=== PATIENT | male | born 1955 | race Caucasian/White ===

== ENCOUNTER 2020-08-08 15:33 | Inpatient (IN) | payer MEDICARE, OTHER, SELFPAY ==
[2020-08-08] VITALS (27 sets, daily range): BP systolic 105–154; BP diastolic 48–98; PULSE 76–86; RESP 10–29; TEMP 36.3–36.8; O2SAT 98–99; BMI 31.9
--- NOTE | ~2020-08-08 | CT_ITS ---
EXAMINATION: CT brain wo con DATE: 08/08/2020 17:33 INDICATION: Dizziness. TECHNIQUE: Computed tomography (CT) of the head was performed without intravenous contrast. The mA wa s adjusted according to patient size. Iterative reconstruction technique was employed. The dose-lengt h product was 605.33 mGy-cm. COMPARISON: None FINDINGS: There is no intracranial hemorrhage, acute infarction, or abnormal intracranial mass lesion . The ventricles are normal in size. The orbits are normal. There is near complete opacification of l eft sphenoid sinus with thickening and sclerosis of the sinus hercules, consistent with chronic sinusiti s. The mastoid air cells are normal. IMPRESSION: 1. Normal brain. 2. Chronic sinusitis. Reviewed, dictated and finalized at location A.
--- NOTE | ~2020-08-08 | MR_ITS ---
EXAMINATION: MR brain/brain stem wo/w con DATE: 08/09/2020 16:18 INDICATION: Acute cerebrovascular accident. TECHNIQUE: Magnetic resonance imaging (MRI) of the brain and brainstem was performed without and with 20 mL MultiHance intravenous contrast. Sequences included sagittal and axial T1-weighted FSE, axial diffusion-weighted FS EPI, axial T2*-weighted GRE, axial T2-weighted FLAIR Propeller, and axial T2-we ighted Propeller. Postcontrast sequences included axial, sagittal, and coronal T1-weighted FSE. Appar ent diffusion coefficient (ADC) maps were created. COMPARISON: Head CT 08/08/2020 FINDINGS: There are scattered areas of nonspecific increased T2-weighted signal intensity in the cere bral white matter, which is within normal limits for the patient's age. There is no intracranial hemo rrhage, acute infarction, or abnormal intracranial mass lesion. The ventricles are normal in size. Th ere is mucosal thickening in left sphenoid sinus with thickening of the sinus hercules, consistent with chronic sinusitis. The orbits are normal. The mastoid air cells are normal. IMPRESSION: 1. Normal aging brain. 2. Chronic sinusitis. Reviewed, dictated and finalized at location A.
--- NOTE | ~2020-08-08 | XR_ITS ---
EXAMINATION: XR chest 1V portable DATE: 08/08/2020 17:13 INDICATION: Dizziness. TECHNIQUE: A single frontal view of the chest was obtained. COMPARISON: None. FINDINGS: The chest demonstrates clear lungs without pneumonia, pleural effusion, or pneumothorax. Th e heart size is normal. IMPRESSION: 1. No acute cardiopulmonary disease. Reviewed, dictated and finalized at location A.
--- NOTE | 2020-08-08 15:51 | ECG_ITS ---
Measurements Intervals [place] Rate: 79 P: 67 CT: 174 QRS: 0 QRSD: 110 T: 28 QT: 426 QTc: 491 Interpretive Statements SINUS RHYTHM WITH SINUS ARRHYTHMIA NONSPECIFIC ST & T-WAVE ABNORMALITY- HIGH LATERAL LEADS PROLONGED QT INTERVAL BASELINE ARTIFACT- II, III, AVR, AVF, V1-6 ABNORMAL ECG Electronically Signed On 08-08-2020 15:55:16 CDT by Pérez Pepe D.O.
[2020-08-08] MEDS: ONDANSETRON INJ 4 MG/2 ML VIAL IV PUSH (16:42)
[2020-08-08] MEDS: SODIUM CHLORIDE 0.9% IV 1,000 ML 999 ML IV CONT ×2 (16:46→17:43)
--- NOTE | 2020-08-08 16:47 | ED.DIZZY ---
HPI - Dizziness General Chief Complaint: Dizziness Stated Complaint: DIZZY,LIGHTHEADED,NAUSEA Time Seen by Provider: 08/08/20 16:02 Source: patient, EMS and RN notes reviewed Mode of arrival: EMS Limitations: no limitations History of Present Illness HPI Narrative: Patient is 64 years old white male brought to the emergency room by ambulance because of dizziness and fall. 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 Patient does not take blood thinner. History of diabetes, hypertension, brain bleed. Patient does not smoke or drink or uses drugs. Related Data Allergies Allergy/AdvReac Type Severity Reaction Status Date / Time iodine Allergy Unknown Verified 08/08/20 16:12 Review of Systems Review of Systems: Narrative: CONSTITUTIONAL: Denies fever, chills, or sweats. EYES: Denies visual changes, redness, or discharge. ENT: Denies rhinorrhea, congestion, sore throat, or otalgia. CARDIOVASCULAR: Denies chest pain, palpitations, or edema. RESPIRATORY: Denies cough or dyspnea. GASTROINTESTINAL: Denies abdominal pain, nausea, vomiting, or diarrhea. GENITOURINARY: Denies dysuria or hematuria. SKIN: Denies rash or itching. MUSCULOSKELETAL: Denies back pain, joint pain, or myalgia. NEUROLOGIC: Denies headache, numbness, or weakness. PSYCHIATRIC: Denies anxiety or depression. Exam Narrative: Exam Narrative: General appearance: Well-developed, well-nourished Skin: Normal color, warm skin slightly diaphoretic Head: Normocephalic, nontraumatic Eyes: Clear conjunctiva ENT: Oropharynx normal, ears normal, nose normal Neck: Supple, nontender Chest and respiratory: Airway patent, no respiratory distress, no accessory muscle use Heart: Regular rate/rhythm Abdomen: Soft, nontender, no organomegaly, quiet bowel sounds Vascular: Normal peripheral pulses, normal capillary refill. Musculoskeletal: Normal range of motion, nontender back Neurologic: Alert and oriented ?3, FAMILY DEVELOPMENT EXTENSION SPECIALIST is normal as tested, no gross motor deficit. Patient unable to stand up without falling backward. Course Course Emergency Course: Stable Vital Signs Vital signs: Vital Signs Pulse Rate 81 08/08/20 15:41 Respiratory Rate 10 L 08/08/20 15:41 Temperature 36.3 C L 08/08/20 16:02 Pulse Rate 79 08/08/20 16:02 Respiratory Rate 12 08/08/20 16:02 Blood Pressure 122/67 08/08/20 16:02 Pulse Oximetry 99 08/08/20 16:02 MDM - Dizziness MDM Narrative Medical decision making narrative: Heat exhaustion versus acute vertebrobasilar insufficiency. CT head, labs, IV fluid ordered. Further plan to follow Differential Diagnosis Differential diagnosis: Likely orthostatic hypotension, vertebral basilar insufficiency, cerebrovascular accident and transient cerebral ischemia Lab Data Result diagrams: 08/08/20 16:56 08/08/20 16:56 Labs: Lab Results 08/08/20 08/08/20 08/08/20 Range/Units 16:56 16:56 16:56 WBC 5.4 (4.5-10.0) K/mm3 RBC 4.71 (4.6-6.20) M/mm3 Hgb 12.7 L (14.0-18.0) g/dL Hct 38.9 L (42.0-52.0) % MCV 82.6 (80-100) fl MCH 27.0 (26-34) pg MCHC 32.6 (32-36) g/dl RDW 13.6 (11.5-14.5) % Plt Count 54 L (150-375) k/mm3 MPV 11.4 H (7.4-10.4) fl Immature Gran % (Auto) 0.2 (0-0.5) % Neut % (Auto) 84.4 H (45.5-73.1) % Lymph % (Auto) 8.2 L (18.3-44.2) % Tripp % (Auto) 6.2 (2.6-8.5) % Eos % (Auto) 0.6 (0-4.4) % Baso % (Auto) 0.4 (0.2-1.2) % Lymph # (Auto)
[2020-08-08 17:07] LABS: Basophils Percent Auto 0.4 % (0.2-1.2); Eosinophils Percent Auto 0.6 % (0-4.4); Hematocrit 38.9 % (42.0-52.0); Hemoglobin 12.7 g/dL (14.0-18.0); Immature Granulocyte Absolute 0.01 K/mm3 (0.00-0.031); Immature Granulocyte Percent A 0.2 % (0-0.5); Immature Platelet Fraction Pct 6.4 % (0.9-11.2); Lymphocytes Absolute Auto 0.44 K/mm3 (0.9-3.2); Lymphocytes Percent Auto 8.2 % (18.3-44.2); Mean Corpuscular HGB Conc 32.6 g/dl (32-36); Mean Corpuscular Volume 82.6 fl (80-100); Mean Platelet Volume 11.4 fl (7.4-10.4); Monocytes Absolute Auto 0.3 K/mm3 (0.1-0.6); Monocytes Percent Auto 6.2 % (2.6-8.5); Neutrophils Absolute Auto 4.5 K/mm3 (1.3-6.7); Neutrophils Percent Auto 84.4 % (45.5-73.1); Platelet Count Result 54 k/mm3 (150-375); Red Blood Count 4.71 M/mm3 (4.6-6.20); Red Cell Distribution Width 13.6 % (11.5-14.5); White Blood Count 5.4 K/mm3 (4.5-10.0)
[2020-08-08 17:11] LABS: Add Urine Microscopic? YES; Appearance Urine Clear (Clear); Bilirubin Urine Negative (Negative); Blood Urine Negative (Negative); Color Urine Yellow (Yellow); Glucose Urine UA 3+ mg/dL (Negative); Ketones Urine Negative (Negative); Leukocyte Esterase Ur Negative LEU/UL (Negative); Nitrate Urine Negative (Negative); Protein Urine Negative (Negative); Specific Grav Ur 1.018 (1.001-1.035); Urobilinogen Urine Negative mg/dL (<2.0); WBC Urine 0-3 /hpf
[2020-08-08 17:14] LABS: INR 1.4; Prothrombin Time 17.3 Seconds (11.1-14.7)
[2020-08-08 17:15] LABS: Partial Thromboplastin Time 28.4 SECONDS (22.3-36.8)
[2020-08-08 17:22] LABS: Alanine Aminotransferase 25 U/L (4-50); Albumin Level 4.3 g/dL (3.5-5.1); Alkaline Phosphatase 66 U/L (38-126); Anion Gap 8 mmol/L (8-16); Aspartate Amino Transferase 37 U/L (17-59); Bilirubin,Total 0.9 mg/dL (0.2-1.3); Blood Urea Nitrogen 21 mg/dL (9-20); Calcium 9.4 mg/dL (8.4-10.2); Carbon Dioxide 30 mmol/L (22-30); Chloride 99 mmol/L (98-107); Estimated CRCL calculation 77 ml/min; Estimated Glomerular Filt Rate > 60; Glucose 266 mg/dL (75-110); Potassium 3.6 mmol/L (3.4-5.0); Sodium 137 mmol/L (137-145)
[2020-08-08 17:32] LABS: Benzodiazepines Screen Urine Negative (Negative)
[2020-08-08 17:34] LABS: Amphetamine Screen Urine Negative (Negative); Cannabinoid Screen Urine Negative (Negative); Cocaine Screen Urine Negative (Negative); Methadone Screen Urine Negative (Negative); Opiate Screen Urine Positive (Negative); Phencyclidine Screen Urine Negative (Negative)
[2020-08-08 17:35] LABS: Barbiturate Screen Urine Negative (Negative)
[2020-08-08 17:46] LABS: Troponin I < 0.012 ng/mL (0.000-0.034)
--- NOTE | 2020-08-08 18:31 | PC.NURSE ---
[id number] Karla Claire - daughter
--- NOTE | 2020-08-08 21:09 | ADMGEN ---
This patient, Emily Coates, was admitted to 2 Medical Room 252-01 @ 2054. Patient/family oriented to hospital policies and general routines including ID bracelet, bed and alarms, visiting hours, pain management, procedures, bathroom and other care routines, personal items, smoking policy, room service/diet, and visiting hours. Information on how to activate the Rapid Response Team has been discussed. Patient/Family are encouraged to report perceived risks to care and to ask questions if they do not understand what they are told or what they should do.
--- NOTE | 2020-08-08 22:27 | PM.IMHP ---
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 Patient presented today to emergency room via EMS after patient was working cutting trees when he felt dizzy and next thing he knows he was on route to the hospital in the ambulance he has no recollection of the events he was working with 3 other co-workers. There were no prodromes no aura, no shortness of breath no cough no sputum production no fevers no rigors no chills no chest pain no PND no orthopnea no diarrhea he has been his usual state of health up until this is states that he was very hot outside and humid. At the time of my visit patient denied any discomfort no headache no vision change no focal weakness no sensory deficit. Preliminary workup was essentially nonrevealing. Decision was made to place patient on observation. Review of Systems Review of Systems: Narrative: Patient was brought to the emergency room but via EMS due to syncopal episode Constitutional: Constitutional: Denies chills, Denies fatigue, Denies fever(s), Denies malaise and Denies weakness Eyes: Eyes: Denies change in vision ENT: Denies nasal congestion, Denies nasal discharge and Denies nasal obstruction Cardiovascular: Cardiovascular: Denies irregular heart rhythm, Denies claudication, Reports lightheadedness, Denies radiating jaw, neck or arm pain, Denies palpitations, Denies dyspnea, Denies dyspnea on exertion and Denies paroxysmal nocturnal dyspnea Respiratory: Respiratory: Denies cough Gastrointestinal: Gastrointestinal: Denies diarrhea, Denies nausea and Denies vomiting Genitourinary: Genitourinary: Denies dysuria Musculoskeletal: Musculoskeletal: Denies arthralgias Integumentary/Breasts: Skin/Breast: Denies rash Neurologic: Denies focal weakness and Denies Sensory deficit (Neuro) Psychiatric: Psychiatric: Reports no additional psychiatric complaints Endocrine: Endocrine: Reports no additional endocrine complaints Hematologic/Lymphatic: Hematologic/Lymphatic: Reports no additional hematologic/lymphatic complaints Allergic/Immunologic: Allergic/Immunologic: Reports no additional allergic/immunologic complaints PMFSH Social History Social History Smoking status: Former smoker Alcohol intake: never Substance use: never Substance use type: does not use Gender identity (if verbalized by the patient): Male Spiritual care concerns: No Meds Home Medications and Allergies Home Medications Medication Instructions Recorded Confirmed Type Iron (ferrous sulfate) 325 mg PO DAILY 08/08/20 08/08/20 History amitriptyline 100 mg PO QPM 08/08/20 08/08/20 History colestipol 2 g PO BID 08/08/20 08/08/20 History dulaglutide [Trulicity] 1.5 mg SUBCUT WEEKLY 08/08/20 08/08/20 History insulin glargine [Lantus Solostar 18 unit SUBCUT DAILY 08/08/20 08/08/20 History U-100 Insulin] lisinopril-hydrochlorothiazide 2 tablet PO DAILY 08/08/20 08/08/20 History lovastatin 20 mg PO DAILY 08/08/20 08/08/20 History sertraline 100 mg PO BID 08/08/20 08/08/20 History Allergies Allergy/AdvReac Type Severity Reaction Status Date / Time iodine Allergy Unknown Verified 08/08/20 16:12 Vital Signs Vital Signs - 24 hr 08/08/20 15:41 08/08/20 15:46 08/08/20 15:52 Temperature Pulse Rate 81 78 82 Respiratory Rate 10 L 10 L 16 Blood Pressure 113/68 Pulse Oximetry 98 08/08/20 16:00 08/08/20 16:01 08/08/20 16:02 Temperature 97.4 F L Pulse Rate 80 81 78 Respiratory Rate 16 13 10 L Blood Pressure 122/67 122/67 Pulse Oximetry 98 99 08/08/20 16:15 08/08/20 16:16 08/08/20 16:30 Temperature Pulse Rate 82 86 83 Respiratory
[2020-08-08] MEDS: LOVASTATIN 20 MG TABLET PO (22:59)
[2020-08-08] MEDS: SERTRALINE HCL 50 MG TABLET 100 MG PO (22:59)
[2020-08-08] MEDS: AMITRIPTYLINE HCL 25 MG TABLET 100 MG PO (22:59)
[2020-08-08 23:20] LABS: Glucose Point of Care 261 mg/dl (65-105)
[2020-08-09] VITALS (8 sets, daily range): BP systolic 112–143; BP diastolic 59–88; PULSE 67–82; RESP 17–20; TEMP 36–36.7; O2SAT 94–98
--- NOTE | 2020-08-09 | ECHO_ITS ---
Patient Info Name: Emily Coates Age: 64 years : 1955 Gender: Male Ht: 74 in Wt: 249 lbs BSA: 2.46 m2 HR: 68 bpm BP: 117 / 66 mmHg Heart Rhythm: Sinus Rhythm Technical Quality: Fair Exam Date: 08/09/2020 1:03 PM Exam Location: [facility] Card Pulmonary Patient Status: Inpatient Admit Date: 08/08/2020 Staff Ordering Physician: Jeri Delarosa PA-C Financial Aid Counselor: Marley Gutierrez RDCS Attending Provider: Jeri Delarosa PA-C Referring Physician: [place] DE JESUS; Exam Type: CA echo dop bubble study w con Study Info Complete two-dimensional, color flow and Doppler transthoracic echocardiogram is performed with contrast to opacify the left ventricle and to improve the deliniation of the left ventricle endocardial borders. Complete two-dimensional, color flow and Doppler transthoracic echocardiogram is performed with agitated saline. Contrast/Agitated Saline Contrast/Ag. Saline: Agitated Saline Amount: 4.00 ml Summary 1. Left ventricular chamber dimension is normal. 2. Left ventricular systolic function is normal, estimated at 60-65%. 3. There is moderately increased left ventricular wall thickness. 4. The left ventricular diastolic function is grade II diastolic dysfunction. 5. Left atrial chamber dimension is mildly enlarged. 6. No evidence for interatrial shunt with injection of agitated saline with or without Valsalva. 7. There is trace mitral valve regurgitation. 8. There is no aortic valve stenosis. 9. There is trace tricuspid valve regurgitation. 10. No pulmonary hypertension, estimated pulmonary arterial systolic pressure is 19 mmHg. Left Ventricle Left ventricular chamber dimension is normal. Left ventricular systolic function is normal, estimated at 60-65%. There is moderately increased left ventricular wall thickness. The left ventricular diastolic function is grade II diastolic dysfunction. Right Ventricle Right ventricular chamber dimension is normal. Right ventricular systolic function is normal. Left Atria Left atrial chamber dimension is mildly enlarged. Right Atria Right atrial chamber dimension is mildly enlarged. Atrial Septum No evidence for interatrial shunt with injection of agitated saline with or without Valsalva. Aortic Valve The aortic valve is trileaflet. There is mild aortic valve sclerosis. There is no aortic valve stenosis. There is no aortic valve regurgitation. Pulmonic Valve The pulmonic valve is not well visualized. There is trace pulmonic regurgitation. Mitral Valve The mitral valve has normal leaflets. There is trace mitral valve regurgitation. The mitral valve annulus is mildly calcified. Tricuspid Valve The tricuspid valve leaflets are normal. There is trace tricuspid valve regurgitation. No pulmonary hypertension, estimated pulmonary arterial systolic pressure is 19 mmHg. Pericardium/Pleural The pericardium appears epicardial fat pad. There is no pericardial effusion. Inferior Vena Cava Normal inferior vena cava with >50% collapse upon inspiration consistent with normal right atrial pressure, 5 mmHg. Aorta The aortic root size at the sinus of Valsalva is normal. Left Ventricular Outflow Tract Name Value Normal LVOT 2D
[2020-08-09 08:36] LABS: Anion Gap 6 mmol/L (8-16); Blood Urea Nitrogen 17 mg/dL (9-20); Calcium 9.2 mg/dL (8.4-10.2); Carbon Dioxide 29 mmol/L (22-30); Chloride 105 mmol/L (98-107); Estimated CRCL calculation 106 ml/min; Estimated Glomerular Filt Rate > 60; Glucose 176 mg/dL (75-110); Potassium 3.7 mmol/L (3.4-5.0); Sodium 140 mmol/L (137-145)
[2020-08-09] MEDS: COLESTIPOL HCL 1 GM TABLET 2 GM PO ×2 (08:50→17:20)
[2020-08-09] MEDS: hydroCHLOROthiazide 25 MG TABLET PO (08:50)
[2020-08-09] MEDS: FERROUS SULFATE 324 MG TABLET PO (08:50)
[2020-08-09] MEDS: SERTRALINE HCL 50 MG TABLET 100 MG PO ×2 (08:50→17:21)
[2020-08-09] MEDS: lisinopriL 20 MG TABLET PO (08:50)
[2020-08-09] MEDS: INSULIN ASPART (*BKC) 100 UNITS/ML 6 UNITS SUB-Q ×3 (08:50→17:23)
[2020-08-09] MEDS: INSULIN GLARGINE (*BKC) 100 UNITS/ML 18 UNITS SUB-Q (08:51)
[2020-08-09 09:02] LABS: Glucose Point of Care 173 mg/dl (65-105)
[2020-08-09 12:12] LABS: Glucose Point of Care 158 mg/dl (65-105)
--- NOTE | 2020-08-09 13:03 | WPDNEURCNPN ---
Assessment and Plan Additional Plan 1. Possibility of the seizure secondary to the old trauma to the brain requiring the but hold 2. Diabetic neuropathy with autonomic dysfunction resulting in him passing out while working outside, 3. Peripheral neuropathy. MRI of the brain is awaited while he is getting the treatment for all other symptomatology. Question should restart him on anticonvulsant at this stage or just hold because of the possibility of autonomic dysfunction with syncope is unclear. EEG can be obtained subsequently but at this stage we going to wait for the MRI of the brain Consult date: 08/09/20 Time Seen: 11:30 HPI: Emily Coates is a 64 year old male Admitted to the hospital for the syncopal episode in addition to the ongoing history of 1. Insulin-dependent diabetes mellitus 2. Peripheral diabetic neuropathy 3. Dyslipidemia 4. History of intracranial bleed and bur hole to the skull in January of 2020 and 5. Depression reportedly he presented to emergency room via EMS after patient was working cutting trees feeling dizzy and next thing he knew he was on route to the hospital in the ambulance he had no recollection of the events he was working at the time with 3 other coworkers he gave no history of preceding or a, history of associated generalized symptomatology and at the time of initial evaluation he was not complaining of any specific headache or visual difficulties. his past history is consistent with him being former smoker, never alcohol drinker and taking his treatment for the diabetes along with the iron supplements but also amitriptyline 100 mg daily in addition to sertraline 100 mg twice a day and lowers start in 20 mg daily Review of Systems Review of Systems: All systems reviewed & are unremarkable except as noted in HPI and below PMFSH Social History Social History Smoking status: Former smoker Alcohol intake: never Substance use: never Substance use type: does not use Gender identity (if verbalized by the patient): Male Spiritual care concerns: No Meds Home Medications and Allergies Home Medications Medication Instructions Recorded Confirmed Type Iron (ferrous sulfate) 325 mg PO DAILY 08/08/20 08/08/20 History amitriptyline 100 mg PO QPM 08/08/20 08/08/20 History colestipol 2 g PO BID 08/08/20 08/08/20 History dulaglutide [Trulicity] 1.5 mg SUBCUT WEEKLY 08/08/20 08/08/20 History insulin glargine [Lantus Solostar 18 unit SUBCUT DAILY 08/08/20 08/08/20 History U-100 Insulin] lisinopril-hydrochlorothiazide 2 tablet PO DAILY 08/08/20 08/08/20 History lovastatin 20 mg PO DAILY 08/08/20 08/08/20 History sertraline 100 mg PO BID 08/08/20 08/08/20 History Allergies Allergy/AdvReac Type Severity Reaction Status Date / Time iodine Allergy Unknown Verified 08/08/20 16:12 Vital Signs Vital Signs - 24 hr 08/08/20 15:41 08/08/20 15:46 08/08/20 15:52 Temperature Pulse Rate 81 78 82 Respiratory Rate 10 L 10 L 16 Blood Pressure 113/68 Pulse Oximetry 98 08/08/20 16:00 08/08/20 16:01 08/08/20 16:02 Temperature 36.3 C L Pulse Rate 80 81 78 Respiratory Rate 16 13 10 L Blood Pressure 122/67 122/67 Pulse Oximetry 98 99 08/08/20 16:15 08/08/20 16:16 08/08/20 16:30 Temperature Pulse Rate 82 86 83 Respiratory Rate 22 H 16 29 H Blood Pressure 148/65 H Pulse Oximetry 98 08/08/20 16:45 08/08/20 16:46 08/08/20 17:00 Temperature Pulse Rate 80 81 80 Respiratory Rate 11 L 12 11 L Blood Pressure 123/66 Pulse Oximetry 98 08/08/20 17:16 08/08/20 17:33 08/08/20 17:35 Temperature Pulse Rate 79 79 79 Respiratory Rate 13 15 12 Blood Pressure 154/98 H Pulse Oximetry 98 08/08/20 18:02 08/08/20 18:03 08/08/20 18:15 Temperature Pulse Rate 77 78 78 Respiratory Rate 12 13 12 Blood Pressure 131/73 Pulse Oximetry 98 08/08/20 18:16 08/08/20 18:44 08/08/20 18:45 Temperature P
[2020-08-09 16:35] LABS: Creatine Kinase 100 U/L (55-170)
[2020-08-09] MEDS: AMITRIPTYLINE HCL 25 MG TABLET 100 MG PO (17:20)
[2020-08-09] MEDS: LOVASTATIN 20 MG TABLET PO (17:20)
[2020-08-09 17:29] LABS: Glucose Point of Care 170 mg/dl (65-105)
--- NOTE | 2020-08-09 18:45 | PM.DS ---
DS: Admitting Diagnosis Admitting Diagnosis Admitting Diagnosis: syncope DS: Discharge Diagnosis Discharge Diagnosis (1) Syncope and collapse: Code(s): R55 - Syncope and collapse Status: Acute Assessment and Plan: Likely due to dehydration - Patient had prodromal symptoms such as dizziness and weakness as he was working outside on a very hot day. He told me he kept getting dizzy every time he bent down or was moving a lot and said he should of sat down for some water but continue to work. He then passed out but did not fully lose consciousness. He said he could hear everything but kept his eyes closed. A woman kept trying to lift his head or get him to sit up and this kept making him feel weaker and he felt better laying on the ground. - He had no neurological dysfunction numbness or tingling. He has a history of brain bleed with a bur hole in January 2020 - head CT and MRI was negative for acute pathology. No CTA was performed as it was not likely an aneurysm or other vessel pathology to be causing this. He also has an anaphylactic reaction. This may be considered if he has a recurrence. seizure activity was also considered but he had no involuntary movements, loss of bowel or bladder and remembers most of this situation. Again if this reoccurs, may consider EEG or heart monitor. - patient sees Dr. Brandon French in his home town and is going to make an appointment and follow-up with him. I recommended he not drive, take baths, or work off the ground until he is cleared. (2) T2DM (type 2 diabetes mellitus): Code(s): E11.9 - Type 2 diabetes mellitus without complications Status: Acute Assessment and Plan: Last glucose 170 - continue home regimen (3) Diabetic neuropathy: Code(s): E11.40 - Type 2 diabetes mellitus with diabetic neuropathy, unspecified Status: Acute Assessment and Plan: chronic and controlled (4) HTN (hypertension): Code(s): I10 - Essential (primary) hypertension Status: Acute Assessment and Plan: last blood pressure 143/72 (5) Thrombocytopenia: Code(s): D69.6 - Thrombocytopenia, unspecified Status: Acute Assessment and Plan: follow-up with primary care physician, does not appear to be the cause of presentation. DS: Summary Hospital Course Hospital Course: Patient is a 64-year-old male who has a history of type 2 diabetes, hypertension, works outside in the heat, and had a history of intracranial bleed with mckenna hole in January 2020 who presented emergency room for syncope. please see above for further details on his recollection of the event. vitals in the ER were temperature 36.3? C, pulse 79, respiratory rate 12, blood pressure 122/67, pulse ox 99 on room air. White blood cell count normal, hemoglobin 12.7, hematocrit 38.9, platelets 66614. BMP showed a creatinine of 1.1 with a BUN of 21. Glucose 266. UA negative for infection. positive opioid screen consistent with his occasional use of prescribed [place]. chest x-ray was negative. head CT negative. EKG showed normal sinus rhythm with slight prolonged QT interval 491. patient was admitted to the hospitalist service and monitored overnight on telemetry. He had no abnormal reviews and remained in normal sinus rhythm the entire time. He had no further symptoms. He received IV fluids and his BMP and creatinine improved. he underwent an MRI which did not show any acute pathology and showed chronic sinusitis. echo revealed EF of 60-65% with grade 2 diastolic dysfunction and no evidence of shunt or pulmonary hypertension. Had a long discussion with the patient and his event sounds to be due to orthostatic hypotension although this cannot be proven because he was given fluids prior to checking these. He had no worrisome symptoms since shows complete loss of consciousness, seizure-like activity, chest pain, or multiple episodes. He
== END 2020-08-09 21:55 | disposition home or self-care (01) | DRG 641 ==
LOC: ANHED 19:01 → ANH2MED 20:09
PROVIDERS: Admitting Provider Emergency Medicine; Emergency Provider Emergency Medicine; Visit Provider Physician Assistant
DX: E86.0 Dehydration (principal); R55 Syncope and collapse; D69.6 Thrombocytopenia, unspecified; E11.42 Type 2 diabetes mellitus with diabetic polyneuropathy; I10 Essential (primary) hypertension; F32.9 Major depressive disorder, single episode, unspecified; E78.5 Hyperlipidemia, unspecified; Z79.4 Long term (current) use of insulin; Z79.899 Other long term (current) drug therapy; Z87.891 Personal history of nicotine dependence
CPT/HCPCS: 36415; 70450; 70553; 71045; 80048; 80053; 80307; 81001; 82550; 82948; 84484; 85025; 85055; 85610; 85730; 93005; 96361; 96374; 96375; 99285; A9270; A9577; C8929; J0131; J1815; J2405; J7030; Q9957